=== PATIENT | male | born 1985 | race Caucasian/White ===

== ENCOUNTER 2024-05-15 19:22 | Emergency (ER) | payer OTHER, SELFPAY ==
[2024-05-15 19:24] VITALS: BP 138/86
--- NOTE | 2024-05-15 20:02 | ED.GENMED ---
History of Present Illness
General
Chief Complaint: Nose Bleed
Source: patient
Time Seen by Provider: 05/15/24 19:57
History of Present Illness
History of Present Illness:
38-year-old male with no significant past medical history presents to the emergency department for evaluation after he sustained left nare epistaxis that started around 5:30 PM this evening and continued off and on for an hour without stopping
prompting him to come to the ER for further evaluation. Since arriving to the emergency department and slightly before patient states the bleeding seems to have subsided. Patient does note that he recently had mild viral-like illness which seems
to be resolved. He also notes that he was outside doing a bunch of yard work all day today. Patient denies any history of similar, recent easy bruising or other episodes of spontaneous bleeding. No other concerns.
Past History
Past History
ED Past Medical History: None
ED Past Surgical History: None
Social History
Tobacco: Non-smoker
Alcohol: None
Drug: None
Personal:
Living: with family
Review of Systems
Review of Systems
All Other Systems: ROS reviewed and negative except as documented in HPI and ROS
Phy Exam
Physical Exam
Physical Exam:
GENERAL: Alert , in no apparent distress
EYE: conjunctiva clear
Head: Normocephalic atraumatic
NECK: Supple,
ENT: mmm. Dried blood to the left anterior nare along the nasal septum, no active bleeding, no septal hematoma
LUNGS: no acute respiratory distress
NEUROLOGICAL: Alert and oriented
SKIN: Warm and dry, skin intact. No petechiae
MUSCULOSKELETAL: well perfused.
PSYCH: Normal and appropriate interaction.
Scores
Heart Failure Risk
Heart Failure Risk Score: Not Applicable
Heart Score for Chest Pain Patients
STEMI patient?: Not applicable
Withdrawal Assessment of Alcohol
Withdrawal Assessment Completed?: Not applicable
Course
Vital Signs
Initial and Last Documented VS:
Initial Vital Signs
Temp Pulse Resp BP Pulse Ox
97.6 F 69 14 138/86 100
05/15/24 19:24 05/15/24 19:24 05/15/24 19:24 05/15/24 19:24 05/15/24 19:24
Last Documented Vital Signs
Temp Pulse Resp BP Pulse Ox
97.6 F 69 14 138/86 100
05/15/24 19:24 05/15/24 19:24 05/15/24 19:24 05/15/24 19:24 05/15/24 19:24
MDM/Problems Addressed
Differential Diagnosis Includes:
Nontraumatic left nare epistaxis likely secondary to recent viral illness, dry air or from blowing nose too hard.
MDM/Problems Addressed:
38-year-old male presenting to the ER for evaluation of left nare epistaxis that began prior to arrival, resolved by time he arrived to the ER. I did offer to observe the patient in the ER for longer to ensure no further bleeding however patient
does feel comfortable being discharged home. He was provided with a nasal clamp. Advised to try saline nasal spray to keep nasal passages moist as well as a humidifier in bedroom while sleeping. ENT information provided to be used as needed.
Stable for discharge home.
*Pulse Oximetry
Patient hypoxic: no
*Critical Care Note
Total Time (30-74mins, 75-104mins- exclusive of procedures): Not Applicable
ED Attending Note
-
Portions of this chart may have been created with voice recognition software.� Occasional wrong word or��sound alike� substitutions may have occurred due to the inherent limitations of voice recognition software.
Discharge Plan
Departure
Patient Disposition: Home (Routine Discharge)
Date of Disposition: 05/15/24
Time of Disposition: 20:02
Patient with high blood pressure during this ER visit?: No
Discharge Problem:
Epistaxis
Instructions: Nosebleeds (DC)
Prescriptions:
No Action
amoxicillin-pot clavulanate 1 TABLET tablet
1 tab PO Q12 Qty: 19 0RF
rabies vacc,human diploid (PF) [Imovax Rabies Vaccine (PF)] 1 ML recon soln
1 ml IM . DIRECTED Qty: 3 0RF
Rx Instructions:
See Rabies Vaccine Post Exposure Prophylaxis Instruction Sheet for Dosing Instructions
prednisone 20 MG tablet
20 mg PO BID Qty: 10 0RF
famotidine 20 MG tablet
20 mg PO BID Qty: 28 0RF
Rx Instructions:
Take 20 mg twice a day for 14 days
ascorbic acid (vitamin C) [Vitamin C] 500 MG tablet
1,000 mg PO BID Qty: 56 0RF
Rx Instructions:
Take 1,000 mg twice a day for 14 days
aspirin 81 MG tablet,chewable
81 mg PO DAILY Qty: 14 0RF
Rx Instructions:
Take 81 mg daily for 14 days
zinc sulfate 220 MG capsule
220 mg PO DAILY Qty: 14 0RF
Rx Instructions:
Take 220 mg daily for 14 days
cholecalciferol (vitamin D3) 1,000 UNITS tablet
2,000 units PO DAILY Qty: 28 0RF
Rx Instructions:
Take 2,000 units daily for 14 days
melatonin 5 MG tablet
5 mg PO HS Qty: 14 0RF
Rx Instructions:
Take 5 mg daily at bedtime for 14 days
Referrals:
William Desai MD [Active] -
(ENT - as needed
)
Interventions
Interventions:
*Risk Screen - Suicide Last Done: 05/15/24 19:24
*General Assessment Last Done: 05/15/24 19:24
*Neglect/Abuse Screening Last Done: 05/15/24 19:24
*ED- Fall Risk Assessment Last Done: 05/15/24 20:01
*ED COVID-19 Vaccine History Last Done: 05/15/24 19:24
*Nursing Disposition Last Done: 05/15/24 20:01
ED-EENT Assessment Last Done: 05/15/24 20:01
Discharge Date and Time
Discharge Date/Time: 05/15/24 20:03
Print Language: GUINEAN
== END 2024-05-15 20:03 | disposition home or self-care (01) ==
LOC: EMR 19:22
PROVIDERS: EMERGENCY PHYSICIAN Emergency Medicine; FAMILY PHYSICIAN Family Medicine
DX: R04.0 Epistaxis (principal)
CPT/HCPCS: 99282